=== PATIENT | male | born 1995 | race Caucasian/White ===

== ENCOUNTER 2018-07-16 21:55 | Emergency (ER) | payer OTHER ==
[2018-07-16 22:06] VITALS: BP 166/66; PULSE 74; TEMP 98.1; BMI 23.5
[2018-07-16] MEDS ORDERED: DIPHTH,PERTUSS(ACELL),TET 0.5 ML DISP.SYRIN IM ONE (22:16)
--- NOTE | 2018-07-16 22:33 | PDOC ---
History of Present Illness - General Chief Complaint: Laceration Stated Complaint: FINGER LACERATION Time Seen by Provider: 07/16/18 22:16 - History of Present Illness Initial Comments: 07/16/18 22:30 22-year-old male not current on tetanus presents for evaluation of a laceration on his left index finger. He states he was cutting with his with a sharp knife and lacerated his finger. He has no comorbidities. Past History - Past Medical History Allergies/Adverse Reactions: Allergies Allergy/AdvReac Type Severity Reaction Status Date / Time No Known Allergies Allergy Verified 07/16/18 22:24 Home Medications: Ambulatory Orders NK [No Known Home Medication] 07/16/18 Anemia: No Asthma: No Cancer: No CVA: No COPD: No CHF: No DVT: No - Surgical History Cholecystectomy: No Gastric Stapling: No GI Surgery: No Neurologic Surgery: No - Suicide/Smoking/Psychosocial Hx Smoking History: Never smoked Have you smoked in the past 12 months: No Information on smoking cessation initiated: No Hx Alcohol Use: No Drug/Substance Use Hx: No Review of Systems - Review of Systems Integumentary: Yes: See HPI *Physical Exam - Vital Signs Last Vital Signs Temp Pulse Resp BP Pulse Ox 98.1 F 74 20 166/66 97 07/16/18 22:04 07/16/18 22:04 07/16/18 22:04 07/16/18 22:04 07/16/18 22:04 - Physical Exam Comments: 07/16/18 22:30 There is a 1 cm laceration over the skin overlying the middle phalanx on the radial aspect of the finger. There are no gross sensorimotor deficits FDS and FDP work independently is neurovascularly intact a small amount of subcutaneous fat is seen Moderate Sedation - Procedure Monitoring Vital Signs: Procedure Monitoring Vital Signs Temperature 98.1 F 07/16/18 22:04 Pulse Rate 74 07/16/18 22:04 Respiratory Rate 20 07/16/18 22:04 Blood Pressure 166/66 07/16/18 22:04 O2 Sat by Pulse Oximetry (%) 97 07/16/18 22:04 Medical Decision Making - Medical Decision Making 07/16/18 22:31 Under aseptic technique 6 mL of 1% lidocaine without epinephrine was injected into the left second finger for digital block. The wound was sterilely cleaned explored to its base in a bloodless field without any identification of a foreign body. Copiously irrigated 3 simple interrupted sutures were placed using 5-0 nylon. A dry sterile dressing was placed *DC/Admit/Observation/Transfer Diagnosis at time of Disposition: Laceration of finger - Discharge Dispostion Disposition: HOME Condition at time of disposition: Stable Decision to Admit order: No - Referrals Referrals: Nash Ewing MD [Staff Physician] - - Patient Instructions Printed Discharge Instructions: DI for Laceration Repair Additional Instructions: Keep the dressing on for the next 48 hours. After 48 hours and may wash her hand but soap and water and leave the area open to air. Return to the emergency room if there is any redness swelling drainage or increasing pain about the area of the laceration. Otherwise, follow-up with hand surgery in 1-2 days for a wound check and further evaluation and treatment options. He may return to the emergency room in 10 days for suture removal. Tylenol and Motrin as directed for pain. - Post Discharge Activity
== END 2018-07-16 22:51 | disposition home or self-care (01) ==
LOC: JERFT 21:55
PROC: 3E0234Z Introduction of Serum, Toxoid and Vaccine into Muscle, Percutaneous Approach (ICD-10-PCS; principal; 2018-07-16)
PROC: 0HQGXZZ Repair Left Hand Skin, External Approach (ICD-10-PCS; 2018-07-16)
DX: S61.211A Laceration without foreign body of left index finger without damage to nail, initial encounter (principal); W26.0XXA Contact with knife, initial encounter; Y93.89 Activity, other specified; Y92.89 Other specified places as the place of occurrence of the external cause; Y99.8 Other external cause status
CPT/HCPCS: 90715; 99281-25

== ENCOUNTER 2018-07-26 10:15 | Emergency (ER) | payer OTHER ==
[2018-07-26 10:24] VITALS: BP 113/56; PULSE 88; TEMP 98.3; BMI 17.8
--- NOTE | 2018-07-26 11:05 | PDOC ---
Suture Removal/Wound Check HPI - History of Present Illness Chief Complaint: Suture/Staple Removal(Here) Stated Complaint: SUTURE REMOVAL Time Seen by Provider: 07/26/18 10:34 History Source: Yes: Patient Exam Limitations: Yes: No Limitations Treated at: [facility] ED Date of Last ED visit: 07/16/18 - Previous ED Treatment Type of procedure performed on last visit: Yes: Laceration Repair Tetanus Immunization: Yes: Given at last ED visit Past History - Travel Traveled outside of the country in the last 30 days: No Close contact w/someone who was outside of country & ill: No - Past Medical History Allergies/Adverse Reactions: Allergies Allergy/AdvReac Type Severity Reaction Status Date / Time No Known Allergies Allergy Verified 07/26/18 10:20 Home Medications: Ambulatory Orders NK [No Known Home Medication] 07/16/18 Anemia: No Asthma: No Cancer: No CVA: No COPD: No CHF: No DVT: No - Surgical History Cholecystectomy: No Gastric Stapling: No GI Surgery: No Neurologic Surgery: No - Suicide/Smoking/Psychosocial Hx Smoking History: Never smoked Have you smoked in the past 12 months: No Information on smoking cessation initiated: No Hx Alcohol Use: No Drug/Substance Use Hx: No Patient Lives Alone: No Lives with/in: parents Suture Removal/Wound Check PE - Physical Exam Laceration/Wound Check Symptoms: reports: None Current Severity Level: None Maximum Severity Level: None Pain Localization: None Location of Laceration/Wound: left: Finger Pain Radiation: None *Review of Systems - Review of Systems Able to Perform ROS?: Yes Constitutional: No: Symptoms Reported Musculoskeletal: No: Symptoms Reported Integumentary: No: Symptoms Reported *Physical Exam - Vital Signs Last Vital Signs Temp Pulse Resp BP Pulse Ox 98.3 F 88 18 113/56 L 99 07/26/18 10:20 07/26/18 10:20 07/26/18 10:20 07/26/18 10:20 07/26/18 10:20 - Physical Exam General Appearance: Yes: Nourished, Appropriately Dressed. No: Apparent Distress Extremity: positive: Normal Capillary Refill, Normal Inspection Integumentary: positive: Normal Color, Warm, Moist, Other (3 sutures noted to tip of left 2nd digit) Neurologic: positive: Motor Strength 5/5 (ambulatory) Moderate Sedation - Procedure Monitoring Vital Signs: Procedure Monitoring Vital Signs Temperature 98.3 F 07/26/18 10:20 Pulse Rate 88 07/26/18 10:20 Respiratory Rate 18 07/26/18 10:20 Blood Pressure 113/56 L 07/26/18 10:20 O2 Sat by Pulse Oximetry (%) 99 07/26/18 10:20 Medical Decision Making - Medical Decision Making 07/26/18 11:07 remoived 3 sutures without diff. bacitracin applied to area *DC/Admit/Observation/Transfer Diagnosis at time of Disposition: Visit for suture removal - Discharge Dispostion Disposition: HOME Condition at time of disposition: Improved - Referrals - Patient Instructions Printed Discharge Instructions: DI for Suture Removal Additional Instructions: apply bacitracin to area twice a day x 2 days. Observe for infection and if noted return to the ED - Post Discharge Activity
== END 2018-07-26 11:17 | disposition home or self-care (01) ==
LOC: JERFT 10:15
DX: Z48.02 Encounter for removal of sutures (principal)
CPT/HCPCS: 99281-25